=== PATIENT | male | born 1955 | race Caucasian/White ===

== ENCOUNTER 2021-01-15 14:20 | Emergency (ER) | payer OTHER ==
[~2021-01-15 14:20] MED LIST: ASPIRIN81 MG PO; BACTRIM DS TAB1 EACH PO; HCTZ12.5 MG PO; NAPROXEN500 MG PO; TOPROL XL100 MG PO; VOLTAREN **OUT75 MG PO; ZESTRIL10 MG PO
[2021-01-15 15:18] LABS: BASOPHIL 0.7 % (0-2); EOSINOPHIL 2.1 % (0-7); HCT 40.7 % (42.0-52.0); HGB 13.6 g/dl (13.2-18.0); LYMPHOCYTE 20.5 % (15-48); MCH 29.3 pg (25.0-31.0); MCHC 33.4 g/dL (32.0-36.0); MCV 87.7 fL (78.0-100.0); MONOCYTE 8.4 % (0-12); NEUTROPHIL 67.8 % (41-80); NRBC 0; PLT 215 K/uL (150-400); RBC 4.64 M/uL (4.70-6.00); RDW 13.2 % (11.5-14.0); WBC 8.3 K/uL (4.0-10.5)
[2021-01-15 15:36] LABS: CORONAVIRUS 2019 SARS-COV-2 NEGATIVE (NEGATIVE); INFLUENZA A NAA NEGATIVE (NEGATIVE)
[2021-01-15 15:40] LABS: ALBUMIN 3.4 g/dL (3.4-5.0); BILIRUBIN - TOTAL 0.4 mg/dL (0.2-1.0); CREATININE 2.08 mg/dL (0.67-1.17); GLOBULIN (CALCULATION) 3.5 g/dL; POTASSIUM 4.4 mmol/L (3.5-5.1); TOTAL PROTEIN 6.9 g/dL (6.4-8.2)
[2021-01-15] MEDS ORDERED: PREDNISONE 20MG20 MG PO (16:20)
[2021-01-15] MEDS ORDERED: MUCINEX1200 MG PO (16:20)
[2021-01-15] MEDS ORDERED: VIBRAMYCIN100 MG PO (16:20)
== END 2021-01-15 17:51 | disposition home or self-care (01) ==
LOC: FER 14:20
PROVIDERS: Emergency Medicine
DX: J44.1 Chronic obstructive pulmonary disease with (acute) exacerbation (principal); N17.9 Acute kidney failure, unspecified; I10 Essential (primary) hypertension; I25.2 Old myocardial infarction; J44.9 Chronic obstructive pulmonary disease, unspecified; Z86.73 Personal history of transient ischemic attack (TIA), and cerebral infarction without residual deficits; Z20.822 Contact with and (suspected) exposure to COVID-19
CPT/HCPCS: 36415; 71045; 80053; 84145; 85025; J0360; J0696; J2930; J3490; U0002